=== PATIENT | female | born 1945 ===

== ENCOUNTER 2024-11-22 21:33 | Inpatient (IN) ==
[2024-11-22] MEDS ORDERED: IOPAMIDOL 100 ML BOTTLE IV ONE (21:34)
[2024-11-22 22:27] LABS: Basophils # (Auto) 0.02 K/mcL (0.00-0.30); Basophils % (Auto) 0.1 % (0.0-2.0); Eosinophils # (Auto) 0.12 K/mcL (0.00-0.70); Eosinophils % (Auto) 0.8 % (0.0-7.0); Hematocrit 26.5 % (34.1-44.9); Hemoglobin 8.5 g/dL (11.2-15.7); Lymphocytes # (Auto) 1.16 K/mcL (1.50-4.80); Lymphocytes % (Auto) 7.6 % (15.5-49.0); Mean Corpuscular HGB Conc 32.1 g/dL (31.0-36.0); Monocytes # (Auto) 1.08 K/mcL (0.10-0.90); Monocytes % (Auto) 7.1 % (1.0-12.0); Neutrophils % (Auto) 84.3 % (38.0-78.0); Platelet Count 710 K/mcL (140-440); RBC 3.18 M/mcL (3.59-5.38); WBC 15.2 K/mcL (4.5-11.0)
[2024-11-22] MEDS: 0.9 % SODIUM CHLORIDE 1,000 ML IV ONE (22:35)
[2024-11-22 23:16] LABS: ALT/SGPT 17 U/L (<40); AST/SGOT 20 U/L (<32); Albumin 3.2 gm/dL (3.2-5.2); Albumin/Globulin Ratio 0.8 (1.0-2.3); Alkaline Phosphatase 108 U/L (39-117); Anion Gap 11.0 (8.0-16.0); Bilirubin,Total 0.3 mg/dL (0.1-1.0); Blood Urea Nitrogen 20 mg/dL (8-23); Calcium 8.8 mg/dL (8.6-10.4); Carbon Dioxide 21 mmol/L (22-30); Chloride 104 mmol/L (96-108); Globulin 3.9 gm/dL (2.2-3.7); Glucose 119 mg/dL (70-105); Potassium 4.2 mmol/L (3.3-5.1); Sodium 136 mmol/L (133-145)
[2024-11-23] MEDS: LORazepam 2 MG/ML VIAL IV ONE (01:07)
[2024-11-23] MEDS: LACTATED RINGERS 1,000 ML IV SCH (02:28)
[2024-11-23] MEDS: metroNIDAZOLE 500 MG/100 ML BAG IV ONE (02:53)
[2024-11-23] MEDS: CIPROFLOXACIN 400 MG/200 ML BAG IV ONE (02:53)
[2024-11-23] MEDS: 0.9 % SODIUM CHLORIDE 1,000 ML IV SCH (06:48)
[2024-11-23] MEDS: cefTRIAXone 2 GM in DEXTROSE 5% IN WATER 50 ML IV SCH (15:49)
[2024-11-23] MEDS: metroNIDAZOLE 500 MG/100 ML BAG IV SCH (15:56)
[2024-11-23] MEDS: PANTOPRAZOLE 40 MG VIAL IV SCH (17:07)
[2024-11-23 19:20] LABS: Basophils # (Auto) 0.03 K/mcL (0.00-0.30); Basophils % (Auto) 0.2 % (0.0-2.0); Eosinophils # (Auto) 0.21 K/mcL (0.00-0.70); Eosinophils % (Auto) 1.3 % (0.0-7.0); Hematocrit 25.0 % (34.1-44.9); Hemoglobin 8.0 g/dL (11.2-15.7); Lymphocytes # (Auto) 1.61 K/mcL (1.50-4.80); Lymphocytes % (Auto) 10.0 % (15.5-49.0); Mean Corpuscular HGB Conc 32.0 g/dL (31.0-36.0); Monocytes # (Auto) 1.00 K/mcL (0.10-0.90); Monocytes % (Auto) 6.2 % (1.0-12.0); Neutrophils % (Auto) 82.0 % (38.0-78.0); Platelet Count 664 K/mcL (140-440); RBC 2.96 M/mcL (3.59-5.38); WBC 16.1 K/mcL (4.5-11.0)
[2024-11-23] MEDS ORDERED: IOPAMIDOL 100 ML BOTTLE IV ONE (20:08)
[2024-11-23] MEDS ORDERED: DIATRIZOATE MEGLU/DIATRIZO SOD 30 ML BOTTLE PO ONE (20:09)
[2024-11-24] MEDS: 0.9 % SODIUM CHLORIDE 250 ML IV SCH ×2 (00:30→06:50)
[2024-11-24 06:02] LABS: Basophils # (Auto) 0.02 K/mcL (0.00-0.30); Basophils % (Auto) 0.1 % (0.0-2.0); Eosinophils # (Auto) 0.23 K/mcL (0.00-0.70); Eosinophils % (Auto) 1.7 % (0.0-7.0); Hematocrit 32.4 % (34.1-44.9); Hemoglobin 10.4 g/dL (11.2-15.7); Lymphocytes # (Auto) 1.96 K/mcL (1.50-4.80); Lymphocytes % (Auto) 14.2 % (15.5-49.0); Mean Corpuscular HGB Conc 32.1 g/dL (31.0-36.0); Monocytes # (Auto) 1.12 K/mcL (0.10-0.90); Monocytes % (Auto) 8.1 % (1.0-12.0); Neutrophils % (Auto) 75.5 % (38.0-78.0); Platelet Count 609 K/mcL (140-440); RBC 3.79 M/mcL (3.59-5.38); WBC 13.8 K/mcL (4.5-11.0)
[2024-11-24] MEDS: hydrALAZINE 20 MG/ML VIAL IV ONE (09:58)
[2024-11-24] MEDS: hydrALAZINE 20 MG/ML VIAL IV PRN (11:38)
[2024-11-24] MEDS: ONDANSETRON 4 MG/2 ML VIAL IV PRN (19:17)
[2024-11-25 06:36] LABS: Basophils # (Auto) 0.01 K/mcL (0.00-0.30); Basophils % (Auto) 0.1 % (0.0-2.0); Eosinophils # (Auto) 0.04 K/mcL (0.00-0.70); Eosinophils % (Auto) 0.3 % (0.0-7.0); Hematocrit 34.7 % (34.1-44.9); Hemoglobin 11.0 g/dL (11.2-15.7); Lymphocytes # (Auto) 1.33 K/mcL (1.50-4.80); Lymphocytes % (Auto) 11.5 % (15.5-49.0); Mean Corpuscular HGB Conc 31.7 g/dL (31.0-36.0); Monocytes # (Auto) 0.75 K/mcL (0.10-0.90); Monocytes % (Auto) 6.5 % (1.0-12.0); Neutrophils % (Auto) 80.6 % (38.0-78.0); Platelet Count 612 K/mcL (140-440); RBC 3.97 M/mcL (3.59-5.38); WBC 11.5 K/mcL (4.5-11.0)
[2024-11-25 09:25] LABS: ALT/SGPT 7 U/L (<40); AST/SGOT 20 U/L (<32); Albumin 2.5 gm/dL (3.2-5.2); Albumin/Globulin Ratio 0.7 (1.0-2.3); Alkaline Phosphatase 86 U/L (39-117); Anion Gap 19.0 (8.0-16.0); Bilirubin,Direct < 0.2 mg/dL (0-0.3); Bilirubin,Total 0.3 mg/dL (0.1-1.0); Blood Urea Nitrogen 4 mg/dL (8-23); Calcium 8.4 mg/dL (8.6-10.4); Carbon Dioxide 13 mmol/L (22-30); Chloride 106 mmol/L (96-108); Globulin 3.6 gm/dL (2.2-3.7); Glucose 75 mg/dL (70-105); Phosphorous 2.7 mg/dL (2.5-4.5); Potassium 3.6 mmol/L (3.3-5.1); Sodium 138 mmol/L (133-145); Triglycerides 77 mg/dL (<150); Uric Acid 4.2 mg/dL (2.5-8.0)
[2024-11-25] MEDS ORDERED: TPN PER PHARMACY IV SCH (14:15)
[2024-11-25] MEDS: PEG 3350/NA SULF,BICARB,CL/KCL 4,000 ML ORAL.SOL PO SCH (14:56)
[2024-11-25] MEDS ORDERED: LIDOCAINE 1% 10 ML VIAL SQ ONE (15:38)
[2024-11-25] MEDS ORDERED: HEPARIN 10 UNITS/ML 5ML FLUSH IV ONE (15:38)
[2024-11-25] MEDS ORDERED: SODIUM CHLORIDE IRRIG SOLUTION 250 ML BOTTLE IRR ONE (15:38)
[2024-11-26 06:47] LABS: Basophils # (Auto) 0.03 K/mcL (0.00-0.30); Basophils % (Auto) 0.3 % (0.0-2.0); Eosinophils # (Auto) 0.10 K/mcL (0.00-0.70); Eosinophils % (Auto) 1.0 % (0.0-7.0); Hematocrit 33.4 % (34.1-44.9); Hemoglobin 11.0 g/dL (11.2-15.7); Lymphocytes # (Auto) 1.37 K/mcL (1.50-4.80); Lymphocytes % (Auto) 13.9 % (15.5-49.0); Mean Corpuscular HGB Conc 32.9 g/dL (31.0-36.0); Monocytes # (Auto) 0.81 K/mcL (0.10-0.90); Monocytes % (Auto) 8.2 % (1.0-12.0); Neutrophils % (Auto) 75.9 % (38.0-78.0); Platelet Count 648 K/mcL (140-440); RBC 3.98 M/mcL (3.59-5.38); WBC 9.9 K/mcL (4.5-11.0)
[2024-11-26 07:39] LABS: ALT/SGPT 10 U/L (<40); AST/SGOT 18 U/L (<32); Albumin 2.8 gm/dL (3.2-5.2); Albumin/Globulin Ratio 0.8 (1.0-2.3); Alkaline Phosphatase 80 U/L (39-117); Anion Gap 15.0 (8.0-16.0); Bilirubin,Direct < 0.2 mg/dL (0-0.3); Bilirubin,Total 0.2 mg/dL (0.1-1.0); Blood Urea Nitrogen 4 mg/dL (8-23); Calcium 8.5 mg/dL (8.6-10.4); Carbon Dioxide 19 mmol/L (22-30); Chloride 107 mmol/L (96-108); Globulin 3.6 gm/dL (2.2-3.7); Glucose 114 mg/dL (70-105); Phosphorous 1.6 mg/dL (2.5-4.5); Potassium 3.1 mmol/L (3.3-5.1); Sodium 141 mmol/L (133-145); Triglycerides 76 mg/dL (<150); Uric Acid 4.5 mg/dL (2.5-8.0)
[2024-11-26] MEDS ORDERED: DEXTROSE 31 GM ORAL.SUSP PO PRN (07:49)
[2024-11-26] MEDS ORDERED: DEXTROSE 50% 50 ML VIAL IV PRN (07:49)
[2024-11-26] MEDS: [UNRECOGNIZED DRUG - OTHER] IV SCH (13:07)
[2024-11-26] MEDS: POTASSIUM PHOSPHATE IV SCH (13:07)
[2024-11-26] MEDS: MVI IV SCH (13:07)
[2024-11-26] MEDS: SODIUM CHLORIDE IV SCH (13:07)
[2024-11-26] MEDS: MAGNESIUM SULFATE IV SCH (13:07)
[2024-11-26] MEDS: INSULIN LISPRO 1 UNIT/0.01 ML UNIT SQ SCH (17:11)
[2024-11-27 07:18] LABS: ALT/SGPT 8 U/L (<40); AST/SGOT 12 U/L (<32); Albumin 2.5 gm/dL (3.2-5.2); Albumin/Globulin Ratio 0.8 (1.0-2.3); Alkaline Phosphatase 67 U/L (39-117); Anion Gap 10.0 (8.0-16.0); Bilirubin,Direct < 0.2 mg/dL (0-0.3); Bilirubin,Total < 0.2 mg/dL (0.1-1.0); Blood Urea Nitrogen 3 mg/dL (8-23); Calcium 8.0 mg/dL (8.6-10.4); Carbon Dioxide 21 mmol/L (22-30); Chloride 108 mmol/L (96-108); Globulin 3.0 gm/dL (2.2-3.7); Glucose 135 mg/dL (70-105); Phosphorous 1.6 mg/dL (2.5-4.5); Potassium 2.8 mmol/L (3.3-5.1); Sodium 139 mmol/L (133-145); Triglycerides 61 mg/dL (<150); Uric Acid 3.3 mg/dL (2.5-8.0)
[2024-11-27] MEDS ORDERED: fentaNYL 100 MCG/2 ML VIAL ONE (08:00)
[2024-11-27] MEDS ORDERED: SUCCINYLCHOLINE 200 MG/10 ML VIAL IV ONE (08:01)
[2024-11-27] MEDS ORDERED: GLYCOPYRROLATE 0.2 MG/ML VIAL IV ONE (08:01)
[2024-11-27] MEDS ORDERED: ROCURONIUM 10 MG/ML ML IV ONE (08:01)
[2024-11-27] MEDS ORDERED: MAGNESIUM SULFATE 2 GM/50 ML BAG IV ONE (08:01)
[2024-11-27] MEDS ORDERED: LIDOCAINE 2% PF 5 ML VIAL ONE (08:01)
[2024-11-27] MEDS ORDERED: DEXAMETHASONE 10 MG/ML VIAL ONE (08:01)
[2024-11-27] MEDS ORDERED: FAMOTIDINE/PF 20 MG/2 ML VIAL IV ONE (08:01)
[2024-11-27] MEDS ORDERED: PROPOFOL 200 MG/20 ML VIAL IV ONE (08:01)
[2024-11-27] MEDS ORDERED: ONDANSETRON 4 MG/2 ML VIAL ONE (08:01)
[2024-11-27] MEDS: METOCLOPRAMIDE 10 MG/2 ML VIAL IV ONE (08:06)
[2024-11-27] MEDS: SCOPOLAMINE 1 PATCH PATCH TOPICAL ONE (08:06)
[2024-11-27] MEDS ORDERED: SUGAMMADEX SODIUM 200 MG/2 ML VIAL IV ONE (08:37)
[2024-11-27] MEDS ORDERED: BUPIVACAINE PF 0.5% 10 ML VIAL ONE (08:37)
[2024-11-27] MEDS: POTASSIUM PHOSPHATE 40 MEQ in DEXTROSE 5% IN WATER 500 ML IV ONE (09:02)
[2024-11-27] MEDS: BUPIVACAINE LIPOSOMAL 1.3% 10 ML VIAL IJ ONE ×2 (10:15→10:16)
[2024-11-27] MEDS: POTASSIUM PHOSPHATE 66 MEQ/15 ML VIAL IV ONE (11:32)
[2024-11-27] MEDS ORDERED: IPRATROPIUM/ALBUTEROL 3 ML AMPUL.NEB NEB PRN ×2 (13:09→13:10)
[2024-11-27] MEDS ORDERED: fentaNYL 100 MCG/2 ML VIAL IV PRN (13:09)
[2024-11-27] MEDS ORDERED: HYDROmorphone 0.5 MG/0.5 ML SYRINGE IV PRN (13:09)
[2024-11-27] MEDS: ACETAMINOPHEN 1,000 MG/100 ML BAG IV ONE (13:23)
[2024-11-27] MEDS: METHOCARBAMOL 1,000 MG/10 ML VIAL IV ONE (13:27)
[2024-11-27] MEDS: LACTATED RINGERS 1,000 ML IV SCH (14:23)
[2024-11-27] MEDS: METHOCARBAMOL 1,000 MG/10 ML VIAL ONE (14:31)
[2024-11-27] MEDS: POTASSIUM PHOSPHATE IV SCH (15:38)
[2024-11-27] MEDS: MVI IV SCH (15:38)
[2024-11-27] MEDS: SODIUM CHLORIDE IV SCH (15:38)
[2024-11-27] MEDS: [UNRECOGNIZED DRUG - OTHER] IV SCH (15:38)
[2024-11-27] MEDS: MAGNESIUM SULFATE IV SCH (15:38)
[2024-11-27] MEDS: fentaNYL 100 MCG/2 ML VIAL IV PRN (17:27)
[2024-11-27] MEDS: METOCLOPRAMIDE 10 MG/2 ML VIAL IV SCH (17:28)
[2024-11-27] MEDS: FAT EMULSION 20% 250 ML IV SCH (17:41)
[2024-11-27] MEDS: ACETAMINOPHEN 1,000 MG/100 ML BAG IV SCH (19:07)
[2024-11-28 06:46] LABS: ALT/SGPT 6 U/L (<40); AST/SGOT 16 U/L (<32); Albumin 2.3 gm/dL (3.2-5.2); Albumin/Globulin Ratio 0.9 (1.0-2.3); Alkaline Phosphatase 57 U/L (39-117); Anion Gap 10.0 (8.0-16.0); Bilirubin,Direct < 0.2 mg/dL (0-0.3); Bilirubin,Total < 0.2 mg/dL (0.1-1.0); Blood Urea Nitrogen 7 mg/dL (8-23); Calcium 7.6 mg/dL (8.6-10.4); Carbon Dioxide 20 mmol/L (22-30); Chloride 108 mmol/L (96-108); Globulin 2.7 gm/dL (2.2-3.7); Glucose 181 mg/dL (70-105); Phosphorous 2.3 mg/dL (2.5-4.5); Potassium 3.1 mmol/L (3.3-5.1); Sodium 138 mmol/L (133-145); Triglycerides 72 mg/dL (<150); Uric Acid 2.1 mg/dL (2.5-8.0)
[2024-11-28 09:03] LABS: Basophils # (Auto) 0.01 K/mcL (0.00-0.30); Basophils % (Auto) 0.1 % (0.0-2.0); Eosinophils # (Auto) 0.01 K/mcL (0.00-0.70); Eosinophils % (Auto) 0.1 % (0.0-7.0); Hematocrit 30.3 % (34.1-44.9); Hemoglobin 10.1 g/dL (11.2-15.7); Lymphocytes # (Auto) 1.70 K/mcL (1.50-4.80); Lymphocytes % (Auto) 9.7 % (15.5-49.0); Mean Corpuscular HGB Conc 33.3 g/dL (31.0-36.0); Monocytes # (Auto) 1.55 K/mcL (0.10-0.90); Monocytes % (Auto) 8.9 % (1.0-12.0); Neutrophils % (Auto) 80.9 % (38.0-78.0); Platelet Count 482 K/mcL (140-440); RBC 3.65 M/mcL (3.59-5.38); WBC 17.4 K/mcL (4.5-11.0)
[2024-11-28 09:18] LABS: ALT/SGPT 8 U/L (<40); AST/SGOT 16 U/L (<32); Albumin 2.2 gm/dL (3.2-5.2); Albumin/Globulin Ratio 0.8 (1.0-2.3); Alkaline Phosphatase 56 U/L (39-117); Anion Gap 9.0 (8.0-16.0); Bilirubin,Direct < 0.2 mg/dL (0-0.3); Bilirubin,Total < 0.2 mg/dL (0.1-1.0); Blood Urea Nitrogen 8 mg/dL (8-23); Calcium 7.5 mg/dL (8.6-10.4); Carbon Dioxide 21 mmol/L (22-30); Chloride 110 mmol/L (96-108); Globulin 2.7 gm/dL (2.2-3.7); Glucose 138 mg/dL (70-105); Phosphorous 2.5 mg/dL (2.5-4.5); Potassium 3.1 mmol/L (3.3-5.1); Sodium 140 mmol/L (133-145); Triglycerides 41 mg/dL (<150); Uric Acid 2.0 mg/dL (2.5-8.0)
[2024-11-28] MEDS: 0.9 % SODIUM CHLORIDE 1,000 ML IV SCH (10:34)
[2024-11-28] MEDS: [UNRECOGNIZED DRUG - REMARK] IV SCH (15:44)
[2024-11-28] MEDS: HEPARIN 10 UNITS/ML 5ML FLUSH IV SCH ×2 (21:36)
[2024-11-29 07:03] LABS: ALT/SGPT 8 U/L (<40); AST/SGOT 16 U/L (<32); Albumin 2.2 gm/dL (3.2-5.2); Albumin/Globulin Ratio 0.8 (1.0-2.3); Alkaline Phosphatase 57 U/L (39-117); Anion Gap 9.0 (8.0-16.0); Bilirubin,Direct < 0.2 mg/dL (0-0.3); Bilirubin,Total < 0.2 mg/dL (0.1-1.0); Blood Urea Nitrogen 9 mg/dL (8-23); Calcium 7.6 mg/dL (8.6-10.4); Carbon Dioxide 21 mmol/L (22-30); Chloride 109 mmol/L (96-108); Globulin 2.9 gm/dL (2.2-3.7); Glucose 153 mg/dL (70-105); Phosphorous 2.6 mg/dL (2.5-4.5); Potassium 3.4 mmol/L (3.3-5.1); Sodium 139 mmol/L (133-145); Triglycerides 53 mg/dL (<150); Uric Acid 1.5 mg/dL (2.5-8.0)
[2024-11-29 07:07] LABS: Basophils # (Auto) 0.04 K/mcL (0.00-0.30); Basophils % (Auto) 0.3 % (0.0-2.0); Eosinophils # (Auto) 0.15 K/mcL (0.00-0.70); Eosinophils % (Auto) 1.2 % (0.0-7.0); Hematocrit 30.0 % (34.1-44.9); Hemoglobin 10.0 g/dL (11.2-15.7); Lymphocytes # (Auto) 1.91 K/mcL (1.50-4.80); Lymphocytes % (Auto) 14.9 % (15.5-49.0); Mean Corpuscular HGB Conc 33.3 g/dL (31.0-36.0); Monocytes # (Auto) 0.96 K/mcL (0.10-0.90); Monocytes % (Auto) 7.5 % (1.0-12.0); Neutrophils % (Auto) 75.5 % (38.0-78.0); Platelet Count 507 K/mcL (140-440); RBC 3.60 M/mcL (3.59-5.38); WBC 12.9 K/mcL (4.5-11.0)
[2024-11-29] MEDS: PYRIDOSTIGMINE BROMIDE 10 MG/2 ML AMPUL IV SCH (17:18)
[2024-11-30 10:17] LABS: Basophils # (Auto) 0.02 K/mcL (0.00-0.30); Basophils % (Auto) 0.2 % (0.0-2.0); Eosinophils # (Auto) 0.28 K/mcL (0.00-0.70); Eosinophils % (Auto) 2.6 % (0.0-7.0); Hematocrit 29.1 % (34.1-44.9); Hemoglobin 9.5 g/dL (11.2-15.7); Lymphocytes # (Auto) 1.74 K/mcL (1.50-4.80); Lymphocytes % (Auto) 16.1 % (15.5-49.0); Mean Corpuscular HGB Conc 32.6 g/dL (31.0-36.0); Monocytes # (Auto) 0.88 K/mcL (0.10-0.90); Monocytes % (Auto) 8.2 % (1.0-12.0); Neutrophils % (Auto) 72.6 % (38.0-78.0); Platelet Count 476 K/mcL (140-440); RBC 3.45 M/mcL (3.59-5.38); WBC 10.8 K/mcL (4.5-11.0)
[2024-11-30 10:26] LABS: ALT/SGPT 7 U/L (<40); AST/SGOT 15 U/L (<32); Albumin 2.1 gm/dL (3.2-5.2); Albumin/Globulin Ratio 0.8 (1.0-2.3); Alkaline Phosphatase 56 U/L (39-117); Anion Gap 8.0 (8.0-16.0); Bilirubin,Direct < 0.2 mg/dL (0-0.3); Bilirubin,Total < 0.2 mg/dL (0.1-1.0); Blood Urea Nitrogen 9 mg/dL (8-23); Calcium 7.6 mg/dL (8.6-10.4); Carbon Dioxide 23 mmol/L (22-30); Chloride 108 mmol/L (96-108); Globulin 2.8 gm/dL (2.2-3.7); Glucose 168 mg/dL (70-105); Phosphorous 3.5 mg/dL (2.5-4.5); Potassium 3.9 mmol/L (3.3-5.1); Sodium 139 mmol/L (133-145); Triglycerides 60 mg/dL (<150); Uric Acid 1.1 mg/dL (2.5-8.0)
[2024-11-30] MEDS: [UNRECOGNIZED DRUG - REMARK] IV SCH (15:34)
[2024-11-30] MEDS: LOSARTAN 50 MG TABLET PO SCH (21:45)
[2024-12-01 06:11] LABS: ALT/SGPT 8 U/L (<40); AST/SGOT 18 U/L (<32); Albumin 2.2 gm/dL (3.2-5.2); Albumin/Globulin Ratio 0.8 (1.0-2.3); Alkaline Phosphatase 65 U/L (39-117); Anion Gap 6.0 (8.0-16.0); Bilirubin,Direct < 0.2 mg/dL (0-0.3); Bilirubin,Total < 0.2 mg/dL (0.1-1.0); Blood Urea Nitrogen 11 mg/dL (8-23); Calcium 7.9 mg/dL (8.6-10.4); Carbon Dioxide 24 mmol/L (22-30); Chloride 108 mmol/L (96-108); Globulin 2.8 gm/dL (2.2-3.7); Glucose 152 mg/dL (70-105); Phosphorous 2.9 mg/dL (2.5-4.5); Potassium 4.5 mmol/L (3.3-5.1); Sodium 138 mmol/L (133-145); Triglycerides 62 mg/dL (<150); Uric Acid 1.0 mg/dL (2.5-8.0)
[2024-12-01] MEDS: [UNRECOGNIZED DRUG - REMARK] IV SCH (16:27)
[2024-12-02 06:05] LABS: Basophils # (Auto) 0.01 K/mcL (0.00-0.30); Basophils % (Auto) 0.1 % (0.0-2.0); Eosinophils # (Auto) 0 K/mcL (0.00-0.70); Eosinophils % (Auto) 0 % (0.0-7.0); Hematocrit 33.7 % (34.1-44.9); Hemoglobin 10.9 g/dL (11.2-15.7); Lymphocytes # (Auto) 0.57 K/mcL (1.50-4.80); Lymphocytes % (Auto) 3.4 % (15.5-49.0); Mean Corpuscular HGB Conc 32.3 g/dL (31.0-36.0); Monocytes # (Auto) 0.82 K/mcL (0.10-0.90); Monocytes % (Auto) 4.8 % (1.0-12.0); Neutrophils % (Auto) 91.4 % (38.0-78.0); Platelet Count 604 K/mcL (140-440); RBC 3.98 M/mcL (3.59-5.38); WBC 16.9 K/mcL (4.5-11.0)
[2024-12-02 06:12] LABS: ALT/SGPT 8 U/L (<40); AST/SGOT 18 U/L (<32); Albumin 2.3 gm/dL (3.2-5.2); Albumin/Globulin Ratio 0.8 (1.0-2.3); Alkaline Phosphatase 96 U/L (39-117); Anion Gap 8.0 (8.0-16.0); Bilirubin,Direct < 0.2 mg/dL (0-0.3); Bilirubin,Total 0.3 mg/dL (0.1-1.0); Blood Urea Nitrogen 14 mg/dL (8-23); Calcium 7.9 mg/dL (8.6-10.4); Carbon Dioxide 23 mmol/L (22-30); Chloride 105 mmol/L (96-108); Globulin 2.9 gm/dL (2.2-3.7); Glucose 217 mg/dL (70-105); Phosphorous 2.7 mg/dL (2.5-4.5); Potassium 4.7 mmol/L (3.3-5.1); Sodium 136 mmol/L (133-145); Triglycerides 57 mg/dL (<150); Uric Acid 0.8 mg/dL (2.5-8.0)
[2024-12-02] MEDS: FLUCONAZOLE 200 MG/100 ML BAG IV SCH (11:20)
[2024-12-02] MEDS ORDERED: IOPAMIDOL 100 ML BOTTLE IV ONE (12:15)
[2024-12-02] MEDS: CEFEPIME 2 GM VIAL IV SCH (13:05)
[2024-12-02] MEDS: [UNRECOGNIZED DRUG - REMARK] IV SCH (15:47)
[2024-12-02] MEDS: IPRATROPIUM/ALBUTEROL 3 ML AMPUL.NEB NEB SCH (16:12)
[2024-12-02] MEDS: 0.9 % SODIUM CHLORIDE 1,000 ML IV SCH (16:30)
[2024-12-02] MEDS: HYDROmorphone 0.5 MG/0.5 ML SYRINGE IV PRN (23:19)
[2024-12-03 05:46] LABS: ALT/SGPT 9 U/L (<40); AST/SGOT 15 U/L (<32); Albumin 2.0 gm/dL (3.2-5.2); Albumin/Globulin Ratio 0.7 (1.0-2.3); Alkaline Phosphatase 95 U/L (39-117); Anion Gap 6.0 (8.0-16.0); Bilirubin,Direct < 0.2 mg/dL (0-0.3); Bilirubin,Total 0.3 mg/dL (0.1-1.0); Blood Urea Nitrogen 16 mg/dL (8-23); Calcium 7.8 mg/dL (8.6-10.4); Carbon Dioxide 21 mmol/L (22-30); Chloride 105 mmol/L (96-108); Globulin 2.7 gm/dL (2.2-3.7); Glucose 168 mg/dL (70-105); Phosphorous 3.0 mg/dL (2.5-4.5); Potassium 4.7 mmol/L (3.3-5.1); Sodium 132 mmol/L (133-145); Triglycerides 52 mg/dL (<150); Uric Acid 0.8 mg/dL (2.5-8.0)
[2024-12-03 06:04] LABS: Basophils # (Auto) 0.01 K/mcL (0.00-0.30); Basophils % (Auto) 0 % (0.0-2.0); Eosinophils # (Auto) 0.02 K/mcL (0.00-0.70); Eosinophils % (Auto) 0.1 % (0.0-7.0); Hematocrit 26.9 % (34.1-44.9); Hemoglobin 8.7 g/dL (11.2-15.7); Lymphocytes # (Auto) 0.67 K/mcL (1.50-4.80); Lymphocytes % (Auto) 2.8 % (15.5-49.0); Mean Corpuscular HGB Conc 32.3 g/dL (31.0-36.0); Monocytes # (Auto) 1.67 K/mcL (0.10-0.90); Monocytes % (Auto) 7.1 % (1.0-12.0); Neutrophils % (Auto) 89.6 % (38.0-78.0); Platelet Count 465 K/mcL (140-440); RBC 3.17 M/mcL (3.59-5.38); WBC 23.6 K/mcL (4.5-11.0)
[2024-12-03] MEDS ORDERED: fentaNYL 100 MCG/2 ML VIAL ONE (12:08)
[2024-12-03] MEDS ORDERED: PROPOFOL 200 MG/20 ML VIAL IV ONE (12:09)
[2024-12-03] MEDS ORDERED: LIDOCAINE 2% PF 5 ML VIAL ONE (12:10)
[2024-12-03] MEDS ORDERED: ONDANSETRON 4 MG/2 ML VIAL ONE (12:10)
[2024-12-03] MEDS ORDERED: DEXAMETHASONE 10 MG/ML VIAL ONE (12:10)
[2024-12-03] MEDS ORDERED: GLYCOPYRROLATE 0.2 MG/ML VIAL IV ONE (12:10)
[2024-12-03] MEDS ORDERED: ROCURONIUM 10 MG/ML ML IV ONE ×2 (12:11→14:13)
[2024-12-03] MEDS ORDERED: SUCCINYLCHOLINE 200 MG/10 ML VIAL IV ONE (12:11)
[2024-12-03] MEDS ORDERED: MAGNESIUM SULFATE 2 GM/50 ML BAG IV ONE (12:11)
[2024-12-03] MEDS ORDERED: BUPIVACAINE PF 0.5% 10 ML VIAL ONE (12:12)
[2024-12-03] MEDS ORDERED: BUPIVACAINE LIPOSOMAL 1.3% 10 ML VIAL IJ ONE (12:12)
[2024-12-03] MEDS: SCOPOLAMINE 1 PATCH PATCH TOPICAL ONE (12:47)
[2024-12-03] MEDS ORDERED: HYDROmorphone 0.5 MG/0.5 ML SYRINGE ONE (12:52)
[2024-12-03] MEDS ORDERED: PHENYLephrine 1 MG/10 ML SYRINGE (ANEST) ONE (13:27)
[2024-12-03] MEDS ORDERED: VASOPRESSIN 20 UNIT/ML VIAL ONE (14:31)
[2024-12-03] MEDS ORDERED: 0.9 % SODIUM CHLORIDE 100 ML IV ONE (14:31)
[2024-12-03] MEDS ORDERED: FAMOTIDINE/PF 20 MG/2 ML VIAL IV ONE (14:32)
[2024-12-03] MEDS: VANCOMYCIN 1 GM VIAL TOPICAL SCH (16:07)
[2024-12-03] MEDS: TOBRAMYCIN SULFATE 1.2 GM VIAL TOPICAL ONE (16:08)
[2024-12-03] MEDS ORDERED: SUGAMMADEX SODIUM 200 MG/2 ML VIAL IV ONE (16:23)
[2024-12-03] MEDS ORDERED: HYDROmorphone 0.5 MG/0.5 ML SYRINGE IV PRN (16:45)
[2024-12-03] MEDS ORDERED: IPRATROPIUM/ALBUTEROL 3 ML AMPUL.NEB NEB PRN (16:45)
[2024-12-03] MEDS: fentaNYL 100 MCG/2 ML VIAL IV PRN (17:05)
[2024-12-03] MEDS: [UNRECOGNIZED DRUG - REMARK] IV SCH (17:39)
[2024-12-03] MEDS: ACETAMINOPHEN 1,000 MG/100 ML BAG IV ONE (18:00)
[2024-12-03] MEDS: ALBUMIN HUMAN 25 GM/100 ML BAG IV ONE (18:10)
[2024-12-03] MEDS: LACTATED RINGERS 1,000 ML IV SCH (18:30)
[2024-12-03] MEDS: ACETAMINOPHEN 1,000 MG/100 ML BAG IV SCH (18:47)
[2024-12-03] MEDS: 0.9 % SODIUM CHLORIDE 250 ML IV SCH (19:05)
[2024-12-03] MEDS: ALBUMIN HUMAN 25 GM/100 ML BAG IV SCH (21:40)
[2024-12-04 06:06] LABS: ALT/SGPT 13 U/L (<40); AST/SGOT 30 U/L (<32); Albumin 2.9 gm/dL (3.2-5.2); Albumin/Globulin Ratio 1.3 (1.0-2.3); Alkaline Phosphatase 96 U/L (39-117); Anion Gap 10.0 (8.0-16.0); Bilirubin,Direct 0.2 mg/dL (<0.3); Bilirubin,Total 0.5 mg/dL (0.1-1.0); Blood Urea Nitrogen 19 mg/dL (8-23); Calcium 7.8 mg/dL (8.6-10.4); Carbon Dioxide 18 mmol/L (22-30); Chloride 106 mmol/L (96-108); Globulin 2.3 gm/dL (2.2-3.7); Glucose 198 mg/dL (70-105); Phosphorous 3.1 mg/dL (2.5-4.5); Potassium 4.8 mmol/L (3.3-5.1); Sodium 134 mmol/L (133-145); Triglycerides 57 mg/dL (<150); Uric Acid 1.1 mg/dL (2.5-8.0)
[2024-12-04 07:01] LABS: Basophils # (Auto) 0.01 K/mcL (0.00-0.30); Basophils % (Auto) 0.1 % (0.0-2.0); Eosinophils # (Auto) 0 K/mcL (0.00-0.70); Eosinophils % (Auto) 0 % (0.0-7.0); Hematocrit 23.0 % (34.1-44.9); Hemoglobin 7.3 g/dL (11.2-15.7); Lymphocytes # (Auto) 0.43 K/mcL (1.50-4.80); Lymphocytes % (Auto) 2.3 % (15.5-49.0); Mean Corpuscular HGB Conc 31.7 g/dL (31.0-36.0); Monocytes # (Auto) 1.11 K/mcL (0.10-0.90); Monocytes % (Auto) 6.1 % (1.0-12.0); Neutrophils % (Auto) 91.1 % (38.0-78.0); Platelet Count 453 K/mcL (140-440); RBC 2.66 M/mcL (3.59-5.38); WBC 18.3 K/mcL (4.5-11.0)
[2024-12-04] MEDS: ALBUMIN HUMAN 25 GM/100 ML BAG IV ONE (08:06)
[2024-12-04] MEDS: 0.9 % SODIUM CHLORIDE 250 ML IV SCH (11:30)
[2024-12-04] MEDS: IPRATROPIUM/ALBUTEROL 3 ML AMPUL.NEB NEB SCH (13:20)
[2024-12-04] MEDS: [UNRECOGNIZED DRUG - REMARK] IV SCH (15:26)
[2024-12-04] MEDS ORDERED: IOPAMIDOL 100 ML BOTTLE IV ONE (17:32)
[2024-12-04] MEDS: FUROSEMIDE 20 MG/2 ML VIAL IV SCH (17:54)
[2024-12-04] MEDS: METHOCARBAMOL 1,000 MG/10 ML VIAL IV PRN (17:56)
[2024-12-04] MEDS: 0.9 % SODIUM CHLORIDE 1,000 ML IV SCH (20:25)
[2024-12-04] MEDS: FUROSEMIDE 40 MG/4 ML VIAL IV ONE (22:02)
[2024-12-05 06:16] LABS: Basophils # (Auto) 0.01 K/mcL (0.00-0.30); Basophils % (Auto) 0.1 % (0.0-2.0); Eosinophils # (Auto) 0.01 K/mcL (0.00-0.70); Eosinophils % (Auto) 0.1 % (0.0-7.0); Hematocrit 31.7 % (34.1-44.9); Hemoglobin 10.3 g/dL (11.2-15.7); Lymphocytes # (Auto) 0.72 K/mcL (1.50-4.80); Lymphocytes % (Auto) 4.0 % (15.5-49.0); Mean Corpuscular HGB Conc 32.5 g/dL (31.0-36.0); Monocytes # (Auto) 1.31 K/mcL (0.10-0.90); Monocytes % (Auto) 7.3 % (1.0-12.0); Neutrophils % (Auto) 87.9 % (38.0-78.0); Platelet Count 467 K/mcL (140-440); RBC 3.56 M/mcL (3.59-5.38); WBC 18.0 K/mcL (4.5-11.0)
[2024-12-05 06:23] LABS: ALT/SGPT 245 U/L (<40); AST/SGOT 565 U/L (<32); Albumin 2.9 gm/dL (3.2-5.2); Albumin/Globulin Ratio 1.3 (1.0-2.3); Alkaline Phosphatase 115 U/L (39-117); Anion Gap 14.0 (8.0-16.0); Bilirubin,Direct 0.5 mg/dL (<0.3); Bilirubin,Total 0.7 mg/dL (0.1-1.0); Blood Urea Nitrogen 28 mg/dL (8-23); Calcium 8.0 mg/dL (8.6-10.4); Carbon Dioxide 16 mmol/L (22-30); Chloride 104 mmol/L (96-108); Globulin 2.3 gm/dL (2.2-3.7); Glucose 170 mg/dL (70-105); Phosphorous 5.0 mg/dL (2.5-4.5); Potassium 4.5 mmol/L (3.3-5.1); Sodium 134 mmol/L (133-145); Triglycerides 101 mg/dL (<150); Uric Acid 2.4 mg/dL (2.5-8.0)
[2024-12-05] MEDS: HEPARIN SOD,PORK IN 0.45% NACL 500 ML IV SCH (08:47)
[2024-12-05] MEDS: HEPARIN 5,000 UNIT/ML VIAL IV ONE (08:47)
[2024-12-05] MEDS: ASPIRIN 81 MG TAB.CHEW CHEWED ONE (08:51)
[2024-12-05] MEDS: FUROSEMIDE 20 MG/2 ML VIAL IV SCH (10:14)
[2024-12-05 10:45] LABS: Partial Thromboplastin Time 33.4 sec (20.0-37.0)
[2024-12-05 11:03] LABS: INR 1.4 (0.9-1.1); Prothrombin Time 18.3 sec (11.9-14.5)
[2024-12-05] MEDS ORDERED: [UNRECOGNIZED DRUG - REMARK] IV SCH (15:00)
[2024-12-05] MEDS ORDERED: [UNRECOGNIZED DRUG - REMARK] IV SCH (15:00)
[2024-12-05] MEDS: [UNRECOGNIZED DRUG - REMARK] IV SCH (15:21)
[2024-12-05] MEDS: CLOPIDOGREL 300 MG TABLET PO ONE (16:44)
[2024-12-06] MEDS ORDERED: ASPIRIN 81 MG TAB.CHEW CHEWED SCH (09:00)
[2024-12-06] MEDS ORDERED: CLOPIDOGREL 75 MG TABLET PO SCH (09:00)
== END 2024-12-05 22:47 | disposition short-term general hospital (02) | DRG 981 ==
LOC: ED 21:33 → MEDSUR 11-23 02:10 → ICU 12-03 17:28
PROVIDERS: ADMIT Family Medicine Adult Medicine; ATTEND Family Medicine Adult Medicine

== ENCOUNTER 2025-02-06 10:59 | Inpatient (IN) ==
[2025-02-06 11:37] LABS: Basophils # (Auto) 0.04 K/mcL (0.00-0.30); Basophils % (Auto) 0.4 % (0.0-2.0); Eosinophils # (Auto) 0.18 K/mcL (0.00-0.70); Eosinophils % (Auto) 2.0 % (0.0-7.0); Hematocrit 39.7 % (34.1-44.9); Hemoglobin 12.9 g/dL (11.2-15.7); Lymphocytes # (Auto) 1.29 K/mcL (1.50-4.80); Lymphocytes % (Auto) 14.4 % (15.5-49.0); Mean Corpuscular HGB Conc 32.5 g/dL (31.0-36.0); Monocytes # (Auto) 0.68 K/mcL (0.10-0.90); Monocytes % (Auto) 7.6 % (1.0-12.0); Neutrophils % (Auto) 75.4 % (38.0-78.0); Platelet Count 491 K/mcL (140-440); RBC 4.35 M/mcL (3.59-5.38); WBC 9.0 K/mcL (4.5-11.0)
[2025-02-06 12:01] LABS: ALT/SGPT 33 U/L (<40); AST/SGOT 27 U/L (<32); Albumin 4.2 gm/dL (3.2-5.2); Albumin/Globulin Ratio 0.9 (1.0-2.3); Alkaline Phosphatase 140 U/L (39-117); Anion Gap 15.0 (8.0-16.0); Bilirubin,Total 0.3 mg/dL (0.1-1.0); Blood Urea Nitrogen 73 mg/dL (8-23); Calcium 10.1 mg/dL (8.6-10.4); Carbon Dioxide 18 mmol/L (22-30); Chloride 98 mmol/L (96-108); Globulin 4.5 gm/dL (2.2-3.7); Glucose 136 mg/dL (70-105); Potassium 5.9 mmol/L (3.3-5.1); Sodium 131 mmol/L (133-145)
[2025-02-06] MEDS: SODIUM ZIRCONIUM CYCLOSILICATE 10 GM PACKET PO ONE (13:42)
[2025-02-06] MEDS: 0.45 % SODIUM CHLORIDE 1,000 ML IV SCH (13:42)
[2025-02-06] MEDS: SODIUM BICARBONATE 50 MEQ/50 ML VIAL IV ONE (14:09)
[2025-02-06] MEDS: SODIUM BICARBONATE IV ONE (14:10)
[2025-02-06] MEDS: EMPTYBAG IV ONE (14:10)
[2025-02-06] MEDS ORDERED: ONDANSETRON 4 MG/2 ML VIAL IV PRN (14:59)
[2025-02-06] MEDS ORDERED: ACETAMINOPHEN 325 MG TABLET PO PRN (14:59)
[2025-02-06] MEDS: SODIUM BICARBONATE VIAL 150 MEQ in WATER FOR INJECTION,STERILE 850 ML IV SCH (15:09)
[2025-02-06] MEDS: SODIUM ZIRCONIUM CYCLOSILICATE 10 GM PACKET PO SCH (15:49)
[2025-02-06 17:43] LABS: Albumin 3.7 gm/dL (3.2-5.2); Anion Gap 12.0 (8.0-16.0); Blood Urea Nitrogen 73 mg/dL (8-23); Calcium 9.4 mg/dL (8.6-10.4); Carbon Dioxide 24 mmol/L (22-30); Chloride 96 mmol/L (96-108); Glucose 93 mg/dL (70-105); Phosphorous 6.4 mg/dL (2.5-4.5); Potassium 5.4 mmol/L (3.3-5.1); Sodium 132 mmol/L (133-145)
[2025-02-06] MEDS: SENNOSIDES 1 TABLET PO SCH (20:29)
[2025-02-06] MEDS: HEPARIN 5,000 UNIT/ML VIAL SQ SCH (20:30)
[2025-02-06] MEDS: 0.9 % SODIUM CHLORIDE 10 ML SYRINGE IV SCH (20:31)
[2025-02-07 05:00] LABS: ALT/SGPT 22 U/L (<40); AST/SGOT 22 U/L (<32); Albumin 3.4 gm/dL (3.2-5.2); Albumin/Globulin Ratio 1.0 (1.0-2.3); Alkaline Phosphatase 109 U/L (39-117); Anion Gap 14.0 (8.0-16.0); Bilirubin,Direct < 0.2 mg/dL (0-0.3); Bilirubin,Total 0.3 mg/dL (0.1-1.0); Blood Urea Nitrogen 73 mg/dL (8-23); Calcium 8.9 mg/dL (8.6-10.4); Carbon Dioxide 27 mmol/L (22-30); Chloride 91 mmol/L (96-108); Globulin 3.5 gm/dL (2.2-3.7); Glucose 88 mg/dL (70-105); Phosphorous 5.6 mg/dL (2.5-4.5); Potassium 4.4 mmol/L (3.3-5.1); Sodium 132 mmol/L (133-145); Triglycerides 152 mg/dL (<150); Uric Acid 9.1 mg/dL (2.5-8.0)
[2025-02-07 05:04] LABS: Basophils # (Auto) 0.04 K/mcL (0.00-0.30); Basophils % (Auto) 0.6 % (0.0-2.0); Eosinophils # (Auto) 0.21 K/mcL (0.00-0.70); Eosinophils % (Auto) 3.2 % (0.0-7.0); Hematocrit 32.0 % (34.1-44.9); Hemoglobin 10.4 g/dL (11.2-15.7); Lymphocytes # (Auto) 1.80 K/mcL (1.50-4.80); Lymphocytes % (Auto) 27.5 % (15.5-49.0); Mean Corpuscular HGB Conc 32.5 g/dL (31.0-36.0); Monocytes # (Auto) 0.70 K/mcL (0.10-0.90); Monocytes % (Auto) 10.7 % (1.0-12.0); Neutrophils % (Auto) 57.8 % (38.0-78.0); Platelet Count 373 K/mcL (140-440); RBC 3.54 M/mcL (3.59-5.38); WBC 6.6 K/mcL (4.5-11.0)
[2025-02-07 07:29] LABS: Hepatitis B Surface Antigen Negative (Negative)
[2025-02-07] MEDS: 0.9 % SODIUM CHLORIDE 1,000 ML IV SCH (10:03)
[2025-02-07 18:11] LABS: Bilirubin,Urine Negative (Negative); Color,Urine YELLOW; Glucose,Urine (UA) Negative (Negative); Ketones,Urine Negative (Negative); Leukocyte Esterase,Urine 500 /uL (Negative); Mucus,Urine FEW /hpf; PH,Urine 6.0 (5.0-9.0); Protein,Urine Negative (Negative); Specific Gravity,Urine 1.005 (1.000-1.035); Urine Budding Yeast MANY /hpf; Urobilinogen,Urine Negative
[2025-02-07] MEDS ORDERED: 0.9 % SODIUM CHLORIDE 10 ML SYRINGE IV PRN (18:35)
[2025-02-07] MEDS: HEPARIN 10 UNITS/ML 5ML FLUSH IV SCH ×2 (19:00)
[2025-02-07] MEDS: 0.9 % SODIUM CHLORIDE 10 ML SYRINGE IV SCH (19:01)
[2025-02-07] MEDS ORDERED: GABAPENTIN 100 MG CAPSULE PO SCH (21:00)
[2025-02-07] MEDS ORDERED: DOXYCYCLINE HYCLATE 100 MG TABLET.ORL PO SCH (21:00)
[2025-02-07] MEDS: ATORVASTATIN 40 MG TABLET PO SCH (22:20)
[2025-02-07] MEDS: APIXABAN 2.5 MG TABLET PO SCH (22:20)
[2025-02-08 06:37] LABS: ALT/SGPT 16 U/L (<40); AST/SGOT 18 U/L (<32); Albumin 3.0 gm/dL (3.2-5.2); Albumin/Globulin Ratio 1.0 (1.0-2.3); Alkaline Phosphatase 93 U/L (39-117); Anion Gap 9.0 (8.0-16.0); Bilirubin,Direct < 0.2 mg/dL (0-0.3); Bilirubin,Total 0.3 mg/dL (0.1-1.0); Blood Urea Nitrogen 59 mg/dL (8-23); Calcium 8.4 mg/dL (8.6-10.4); Carbon Dioxide 27 mmol/L (22-30); Chloride 100 mmol/L (96-108); Globulin 3.0 gm/dL (2.2-3.7); Glucose 86 mg/dL (70-105); Phosphorous 4.2 mg/dL (2.5-4.5); Potassium 4.0 mmol/L (3.3-5.1); Sodium 136 mmol/L (133-145); Triglycerides 76 mg/dL (<150); Uric Acid 7.5 mg/dL (2.5-8.0)
[2025-02-08] MEDS ORDERED: ASPIRIN 81 MG TAB.CHEW PO SCH (09:00)
[2025-02-09 04:08] LABS: DNA (DS) ANTIBODY <1 IU/mL (0-9); SSA <0.2 AI (0.0-0.9); SSB <0.2 AI (0.0-0.9)
[2025-02-09 06:11] LABS: ALT/SGPT 14 U/L (<40); AST/SGOT 20 U/L (<32); Albumin 3.1 gm/dL (3.2-5.2); Albumin/Globulin Ratio 1.0 (1.0-2.3); Alkaline Phosphatase 91 U/L (39-117); Anion Gap 9.0 (8.0-16.0); Bilirubin,Direct < 0.2 mg/dL (0-0.3); Bilirubin,Total 0.2 mg/dL (0.1-1.0); Blood Urea Nitrogen 50 mg/dL (8-23); Calcium 8.8 mg/dL (8.6-10.4); Carbon Dioxide 24 mmol/L (22-30); Chloride 104 mmol/L (96-108); Globulin 3.1 gm/dL (2.2-3.7); Glucose 91 mg/dL (70-105); Phosphorous 3.3 mg/dL (2.5-4.5); Potassium 4.3 mmol/L (3.3-5.1); Sodium 137 mmol/L (133-145); Triglycerides 166 mg/dL (<150); Uric Acid 6.1 mg/dL (2.5-8.0)
[2025-02-09] MEDS ORDERED: MAGNESIUM SULFATE 2 GM/50 ML BAG IV ONE (08:41)
[2025-02-09] MEDS: METOPROLOL SUCCINATE 25 MG TAB.XL.24H PO SCH (09:21)
[2025-02-09] MEDS: MAGNESIUM OXIDE 400 MG TABLET PO SCH (09:22)
[2025-02-10 04:39] LABS: Basophils # (Auto) 0.04 K/mcL (0.00-0.30); Basophils % (Auto) 0.5 % (0.0-2.0); Eosinophils # (Auto) 0.18 K/mcL (0.00-0.70); Eosinophils % (Auto) 2.2 % (0.0-7.0); Hematocrit 34.1 % (34.1-44.9); Hemoglobin 10.1 g/dL (11.2-15.7); Lymphocytes # (Auto) 1.31 K/mcL (1.50-4.80); Lymphocytes % (Auto) 16.0 % (15.5-49.0); Mean Corpuscular HGB Conc 29.6 g/dL (31.0-36.0); Monocytes # (Auto) 0.65 K/mcL (0.10-0.90); Monocytes % (Auto) 7.9 % (1.0-12.0); Neutrophils % (Auto) 73.3 % (38.0-78.0); Platelet Count 358 K/mcL (140-440); RBC 3.48 M/mcL (3.59-5.38); WBC 8.2 K/mcL (4.5-11.0)
[2025-02-10 05:11] LABS: Iron 44.0 ug/dL (37-145); TIBC Calculation 196.0 ug/dl (228-428); Transferrin % Saturation 22.0 % (15-50)
[2025-02-10 08:34] LABS: ALT/SGPT 18 U/L (<40); AST/SGOT 23 U/L (<32); Albumin 3.3 gm/dL (3.2-5.2); Albumin/Globulin Ratio 1.0 (1.0-2.3); Alkaline Phosphatase 94 U/L (39-117); Anion Gap 11.0 (8.0-16.0); Bilirubin,Direct < 0.2 mg/dL (0-0.3); Bilirubin,Total 0.2 mg/dL (0.1-1.0); Blood Urea Nitrogen 45 mg/dL (8-23); Calcium 9.4 mg/dL (8.6-10.4); Carbon Dioxide 22 mmol/L (22-30); Chloride 106 mmol/L (96-108); Globulin 3.4 gm/dL (2.2-3.7); Glucose 126 mg/dL (70-105); Phosphorous 3.1 mg/dL (2.5-4.5); Potassium 4.8 mmol/L (3.3-5.1); Sodium 139 mmol/L (133-145); Triglycerides 124 mg/dL (<150); Uric Acid 5.4 mg/dL (2.5-8.0)
[2025-02-10] MEDS: METOPROLOL SUCCINATE 50 MG TAB.XL.24H PO SCH (08:50)
[2025-02-11 20:26] LABS: Myeloperoxidase ABS <1.0 AI; Proteinase-3-AB <1.0 AI
== END 2025-02-10 14:50 | DRG 683 ==
LOC: ED 10:59 → MEDSUR 14:45
PROVIDERS: ADMIT Internal Medicine; ATTEND Internal Medicine